=== PATIENT | female | born 1980 | race Caucasian/White ===

== ENCOUNTER 2023-04-02 08:40 | Outpatient (OUT) | payer OTHER, SELFPAY ==
--- NOTE | 2023-04-02 | MM_ITS ---
Patient Name: ARAMIS GARCIA MR#: [id number] : 1980 Exam Date: 04/02/2023 Ordering Doctor: DR Marshall Sanchez . RADIOLOGY REPORT PROCEDURE: MM TOMOSYNTHESIS SCREENING BI COMPARISON: MG MAMM SCREEN 3D [place] CAD, 11/28/2021. MG MAMM SCREEN [facility] W CAD, 05/17/2020. INDICATIONS: [place] Screening Mammogram Calculator Name NCI Breast Cancer Risk Assessment Tool 5 Year Breast Cancer Risk 1.10% Lifetime Breast Cancer Risk 13.10% Personal Breast Cancer No Personal Ovarian Cancer No Treatments None Family Cancers Mother with lung cancer at age 51. LOCATION: [facility] BREAST COMPOSITION: Scattered areas fibroglandular density. FINDINGS: DIAGNOSTIC CATEGORY 1--NEGATIVE. NO CHANGE FROM COMPARISON ASSESSMENT. Scattered benign-appearing calcifications are present. Scattered benign-appearing lymph nodes are present. RIGHT BREAST: No significant suspicious finding. LEFT BREAST: No significant suspicious finding. RECOMMENDATIONS: ROUTINE MAMMOGRAM AND CLINICAL EVALUATION IN 12 MONTHS. PLEASE NOTE: A NORMAL MAMMOGRAM DOES NOT EXCLUDE THE POSSIBILITY OF BREAST CANCER. A CLINICALLY SUSPICIOUS PALPABLE LUMP SHOULD BE BIOPSIED. Dictated by: Jameson Olivas MD on 04/02/2023 at 12:56 Approved by: Jameson Olivas MD on 04/02/2023 at 12:58
== END 2023-04-02 08:41 | disposition home or self-care (01) ==
LOC: MAMMO 08:40
PROVIDERS: PCP Family Medicine; Visit Provider Family Medicine
DX: Z12.31 Encounter for screening mammogram for malignant neoplasm of breast (principal); Z80.1 Family history of malignant neoplasm of trachea, bronchus and lung
CPT/HCPCS: 77063; 77067

== ENCOUNTER 2023-06-28 10:00 | Outpatient (OUT) | payer OTHER, SELFPAY ==
--- NOTE | 2023-06-28 | XR_ITS ---
The [address] [address] Patient Name: ARAMIS GARCIA MRN: [id number] date: 1980 Sex: F Assigned Patient Location: Current Patient Location: Accession/Order Number: [id number] Exam Date: 06/28/2023 10:05 Report Date: 06/28/2023 11:03 At the request of: ROSIO CORONEL Procedure: XR shoulder LT min 2V EXAM: Left shoulder HISTORY: . LEFT SHOULDER PAIN . COMPARISON: None. TECHNIQUE: 3 views FINDINGS: No fracture or dislocation of left shoulder is noted. Glenohumeral joint is unremarkable. There is penciling of the distal aspect of the clavicle. By history patient has had a portion of the left clavicle removed by surgery. Surrounding soft tissues are unremarkable. XR/XR shoulder LT min 2V IMPRESSION: 1. No acute bony abnormality of the left shoulder. Please see above comments. Electronically authenticated by: ROSS MCCLENDON Date: 06/28/2023 11:03
--- OUTSIDE RECORDS SUMMARY | 2023-06-28 10:18 | XMS_ITS | CCD ---
Author Name Unknown Address [address] [place] [address] Organization [facility] Care Team Providers Care Etcher Apprentice Name Role Phone BRAXTON SAMANO Unavailable Unavailable NADERER, PEBBLES OLIVER Unavailable Unavailabl e LISS, BRAXTON Davis Unavailable Unavailable LISS, BRAXTON Davis Unavailable Unavailable NADERER, PEBBLES OLIVER Unavailable Unavailabl e NIRANJAN ., DR SYKES Attending Unavailable NIRANJAN ., DR SYKES Consulting Unavailable NIRANJAN ., DR SYKES Admitting Unavailable NADERER, DR PEBBLES Morales Primary Care Unavailable NADERER, DR PEBBLES Morales Attending Unavailable NADERER, DR PEBBLES Morales Primary Care Unavailable NADERER, DR PEBBLES Morales Admitting Unavailable MASON, DR ROSS Gregory Consulting Unavailable NADERER, DR PEBBLES Morales Consulting Unavailable NADERER, PEBBLES Morales Primary Care Unavailable NADERER, PEBBLES Referring Unavailable NADERER, PEBBLES Primary Care Unavailable NADERER, PEBBLES Attending Unavailable NADERER, PEBBLES Attending Unavailable NADERER, PEBBLES Attending Unavailable Problems Active Problems Problem Classification Problem Date Documented Da te Episodic/Chronic Cardiac dysrhythmias (1 source) Palpitations; Translations: [Palpitations] Onset: 05-12-2023 Episodic Unclassified (1 source) LEFT AC JOINT SPRAIN / LEFT AC JOINT SPRAIN() Onset: 03-24-2017 Past or Other Problems Problem Classification Problem Date Documented Date Episodic/Chronic Immunizations and screening for infectious disease (1 source) Encounter for screening for human papillomavirus (HPV); Translations: [ENC SCREENING HUMAN PAPILLOMAVIRUS] Onset: 02-15-2022 Episodic Other screening for suspected conditions (not mental disorders or infectious disease) (8 sources) Encounter for screening for malignant neoplasm of cervix; Translations: [Encounter for screening mammogram for malignant neoplasm of breast] Onset: 11-28-2021 Episodic Residual codes; unclassified (1 source) Family history of malignant neoplasm of trachea, bronchus and lung; Translations: [FAM HX MALIG NEOPLSM TRACH BRON LNG] Onset: 12-01-2021 Episodic Unclassified (1 source) LEFT AC JOINT SPRAIN; Translations: [LEFT AC JOINT SPRAIN] Onset: 03-24-2017 Results Test Name Value Interpretation Reference Range Facility Consent Formson 03-24-2023 Consent Forms [id number] GTIFF Normal [facility] CMP Standardon 02-16-2023 eGFR Non AA >60 Invalid Interpretation Code [facility] Comment on above: Performed By: #### 2 839691, [id number], 5360286, 7309687484, 3518232, 4609804, 5418841 #### [facility] (DEFAULT) [address] [place] [address] 16107 eGFR AA >60 Invalid Interpretation Code [facility] Comment on above: Performed By: #### 2 263591, [id number], 3760155, 8907793138, 1270212, 4312469, 4566955 #### [facility] (DEFAULT) [address] [place] [address] 29977 Albumin [Mass/Vol] 4.0 g/dL Normal 3.5-5.0 [facility] Comment on above: Performed By: #### 2 543283, [id number], 0587313, 1174940026, 3770192, 1734461, 2093821 #### [facility] (DEFAULT) [address] [place] [address] 09160 Albumin/Globulin [Mass ratio] 1.1 {ratio} Low 1.4-2.6 [facility] Comment on above: Performed By: #### 2 248987, [id number], 8820408, 8992834605, 5656976, 9703727, 2752700 #### [facility] (DEFAULT) [address] [place] [address] 40389 Alk Phos 54 IU/L Normal 32-91 [facility] Comment on above: Performed By: #### 2 849176, [id number], 7241243, 4782819192, 3481463, 2689448, 4362109 #### [facility] (DEFAULT) [address] [place] [address] 47442 ALT [Catalytic activity/Vol] 23.0 U/L Normal 14.0-54.0 [facility] Comment on above: Performed By: #### 2 050044, [id number], 0773108, 6466320604, 2511131, 1097582, 5511357 #### [facility] (DEFAULT) [address] [place] [address] 41225 Anion gap [Moles/Vol] 9.7 mmol/L Normal 5.0-19.0 [facility] Comment on above: Performed By: #### 2 129055, [id number], 5307978, 4621695878, 8034163, 2144158, 5792307 #### [facility] (DEFAULT) [address] [place] [address] 18420 AST [Catalytic activity/Vol] 21 U/L Normal 15-41 [facility] Comment on above: Performed By: #### 2 355627, [id number], 8067416, 2020937844, 1380392, 3541131, 4104242 #### [facility] (DEFAULT) [address] [place] [address] 49773 Bili Total 0.5 mg/dL Normal 0.3-1.2 [facility] Comment on above: Performed By: #### 2 574584, [id number], 8797891, 9909965829, 0620891, 8254291, 6094616 #### [facility] (DEFAULT) [address] [place] [address] 27683 Calcium [Mass/Vol] 8.7 mg/dL Low 8.9-10.3 [facility] Comment on above: Performed By: #### 2 383529, [id number], 9789590, 5697315896, 8950778, 8036024, 9045055 #### [facility] (DEFAULT) [address] [place] [address] 05679 Chloride [Moles/Vol] 105 mmol/L Normal 101-111 [facility] Comment on above: Performed By: #### 2 720852, 2970161004, 4015384, 0259118246, 0611657, 4113315, 6628274 #### [facility] (DEFAULT) [address] [place] [address] 55594 CO2 [Moles/Vol] 27 mmol/L Normal 21-32 [facility] Comment on above: Performed By: #### 2 021931, 2859720828, 2220251, 7466548006, 1403842, 4484877, 3349611 #### [facility] (DEFAULT) [address] [place] [address] 52428 Creatinine [Mass/Vol] 0.75 mg/dL Normal 0.60-1.30 [facility] Comment on above: Performed By: #### 2 083545, 5052623253, 5329668, 9812383947, 5737824, 6869320, 5292190 #### [facility] (DEFAULT) [address] [place] [address] 59244 Globulin (S) [Mass/Vol] 3.4 g/dL Normal 1.5-4.3 [facility] Comment on above: Performed By: #### 2 854029, 6592299240, 7779365, 2001647923, 9808543, 7534756, 7400733 #### [facility] (DEFAULT) [address] [place] [address] 27812 Glucose [Mass/Vol] 95.0 mg/dL Normal 74.0-118.0 [facility] Comment on above: Performed By: #### 2 438443, 8231176054, 9386236, 2643364973, 7388871, 7432329, 3195795 #### [facility] (DEFAULT) [address] [place] [address] 49825 Osmolality 276 mOsm/L Invalid Interpretation Code [facility] Comment on above: Performed By: #### 2 278947, 9536810031, 3233438, 8028749760, 6611218, 0601597, 0778544 #### [facility] (DEFAULT) [address] [place] [address] 45898 Potassium [Moles/Vol] 3.7 mmol/L Normal 3.6-5.1 [facility] Comment on above: Performed By: #### 2 888040, 4239947204, 4690847, 8190688619, 5294743, 1117364, 9001517 #### [facility] (DEFAULT) [address] [place] [address] 13204 Protein [Mass/Vol] 7.4 g/dL Normal 6.5-8.1 [facility] Comment on above: Performed By: #### 2 349330, 9808467610, 9320393, 7488211707, 6839554, 0567426, 6307372 #### [facility] (DEFAULT) [address] [place] [address] 52346 Sodium [Moles/Vol] 138.0 mmol/L Normal 136.0-144.0 [facility] Comment on above: Performed By: #### 2 228244, 1447441003, 8308154, 9968365160, 3387266, 9600065, 0900435 #### [facility] (DEFAULT) [address] [place] [address] 35796 Urea nitrogen [Mass/Vol] 14 mg/dL Normal 8-26 [facility] Comment on above: Performed By: #### 2 985841, 2039751123, 7007844, 9987457775, 8517172, 2174441, 1676447 #### [facility] (DEFAULT) [address] [place] [address] 24612 Urea nitrogen/Creatinine [Mass ratio] 18.6 mg/mg High 4.6-16.2 [facility] Comment on above: Performed By: #### 2 146588, 0121150272, 7121052, 4449968569, 6079070, 1190391, 3551764 #### [facility] (DEFAULT) [address] [place] [address] 77891 GGTon 02-16-2023 Gamma glutamyl transferase [Catalytic activity/Vol] 14.0 U/L Normal 7.0-50.0 [facility] Comment on above: Performed By: #### 2 375139, 8045028285, 9454104, 2957961928, 2050456, 5514981, 2899450 #### [facility] (DEFAULT) [address] [place] [address] 54216 Iron Levelon 02-16-2023 Iron [Mass/Vol] 78.0 ug/dL Normal 28.0-170.0 [facility] Comment on above: Performed By: #### 2 631500, 4289006460, 9539607, 3500947436, 4431836, 6165483, 6302466 #### [facility] (DEFAULT) [address] [place] [address] 20363 LDHon 02-16-2023 LDH 159.0 IU/L Normal 98.0-192.0 [facility] Comment on above: Performed By: #### 2 291910, 7515700627, 3023677, 9082554226, 4637662, 0741141, 1693632 #### [facility] (DEFAULT) [address] [place] [address] 63392 Lipid Panel Standardon 02-16 Cholesterol [Mass/Vol] 183.0 mg/dL Normal 66.0-200.0 [facility] Comment on above: Performed By: #### 2 881233, 1504030678, 7275740, 8508389388, 7185112, 4601627, 2219971 #### [facility] (DEFAULT) [address] [place] [address] 63268 Cholesterol in HDL [Mass/Vol] 50 mg/dL Normal 40-71 [facility] Comment on above: Performed By: #### 2 034246, 9885349178, 1167526, 1978597927, 3491338, 6475663, 6779154 #### [facility] (DEFAULT) [address] [place] [address] 27183 Cholesterol in LDL [Mass/Vol] 119 mg/dL High 1-100 [facility] Comment on above: Performed By: #### 2 313479, 2849262480, 6788080, 1175595170, 3001470, 7583171, 8036440 #### [facility] (DEFAULT) [address] [place] [address] 53865 Cholesterol.total/C holesterol in HDL [Mass ratio] 3.6 {ratio} Normal 0.0-4.5 [facility] Comment on above: Performed By: #### 2 854308, 0314610191, 4527834, 1008177168, 3284473, 0799684, 9037141 #### [facility] (DEFAULT) [address] [place] [address] 62096 Triglyceride [Mass/Vol] 74.0 mg/dL Normal 0.0-150.0 [facility] Comment on above: Performed By: #### 2 566013, 1762232569, 1904823, 4411194601, 6167946, 2909214, 0435951 #### [facility] (DEFAULT) [address] [place] [address] VLDL. 15 mg/dL Normal 5-40 [facility] Comment on above: Performed By: #### 2 973602, 1138831578, 9258838, 8131091122, 1810691, 5582168, 5732876 #### [facility] (DEFAULT) [address] [place] [address] 52880 Phoson 02-16-2023 Phosphate [Mass/Vol] 3.4 mg/dL Normal 2.5-4.6 [facility] Comment on above: Performed By: #### 2 084968, 9048637087, 0365070, 2306080309, 7023418, 8648502, 9740167 #### [facility] (DEFAULT) [address] [place] [address] 09802 Uric Acidon 02-16-2023 Urate [Mass/Vol] 4.4 mg/dL Normal 2.6-8.0 [facility] Comment on above: Performed By: #### 2 780361, 2393516933, 5856264, 6066212414, 6358693, 6085742, 3774563 #### [facility] (DEFAULT) [address] [place], [place] [address] PAP ACOG PANEL 2: 30 to 65on 02-20-2022 . . Normal [facility] Comment on above: Result Comment: Perf ormed at: WB Performed By: #### 4 178324 #### [facility] [address] [address] [address] Harsh Segundo Age Gdln ACOG Testing 30-65 Normal [facility] Comment on above: Performed By: #### 4 197988 #### [facility] [address] [address] [address] Harsh Segundo DIAGNOSIS: Comment Normal [facility] Comment on above: Result Comment: NEGA TIVE FOR INTRAEPITHELIAL LESION OR MALIGNANCY. SPECIMEN REPROCESSED FOR INTERPRETATION. Performed at: WB Performed By: #### 4 948552 #### [facility] [address] [address] [address] Harsh Segundo HPV Aptima Negative Normal Negative [facility] Comment on above: Result Comment: This nucleic acid amplification test detects fourteen high-risk HPV types (16,18,31,33,35,39,45,51,52,56,58,59,66,68) without differentiation. Performed at: =G Performed By: #### 4 120204 #### [facility] [address] [address] [address] Harsh Segundo HPV Genotype Reflex Comment Normal [facility] Comment on above: Result Comment: Crit eria not met, HPV Genotype not performed. Performed at: WB Performed By: #### 4 447615 #### [facility] [address] [address] [address] Harsh Segundo Methodology: Comment Normal [facility] Comment on above: Result Comment: This liquid based ThinPrep(R) pap test was screened with the use of an image guided system. Performed at: WB Performed By: #### 4 540385 #### [facility] [address] [place] [address] Dr. Harsh Segundo Note: Comment Normal [facility] Comment on above: Result Comment: The Pap smear is a screening test designed to aid in the detection of premalignant and malignant conditions of the uterine cervix. It is not a diagnostic procedure and should not be used as the sole means of detecting cervical cancer. Both false-positive and false-negative reports do occur. . Performed at: WB Performed By: #### 4 930415 #### [facility] [address] [address] [address] Harsh Segundo Performed by: Comment Normal [facility] Comment on above: Result Comment: Jose Francisco Cervantes Loom Technician (ASCP) Performed at: WB Performed By: #### 4 164084 #### [facility] [address] [address] [address] Harsh Segundo Specimen adequacy: Comment Normal [facility] Comment on above: Result Comment: Sati sfactory for evaluation. No endocervical component is identified. Performed at: WB Performed By: #### 4 542620 #### [facility] [address] [place] [address] Dr. Harsh Segundo MG MAMM SCREEN 3D PETERSON CADon 11-28-2021 MG MAMM SCREEN 3D PETERSON CAD Patient: ARAMIS GARCIA Exam Date: 11/28/2021 : 1980 Gender:F Ordering : DR PEBBLES HASTINGS . Admission #: [id number] Family : Order #: [id number] CLICK HERE TO VIEW EXAM RADIOLOGY REPORT PROCEDURE: MAMMOGRAM SCREENING 3D BILATERAL CAD COMPARISON: MG MAMM SCREEN PETERSON W CAD, 03/31/2019. MG MAMM SCREEN PETERSON W CAD, 05/17/2020. INDICATIONS: Screening mammography Calculator Name NCI Breast Cancer Risk Assessment Tool 5 Year Breast Cancer Risk 0.90% Lifetime Breast Cancer Risk 13.40% Personal Breast Cancer No Personal Ovarian Cancer No Treatments None Family Cancers Mother with lung cancer at age 51. LOCATION: [facility] BREAST COMPOSITION: Scattered areas fibroglandular density. FINDINGS: DIAGNOSTIC CATEGORY 1--NEGATIVE. NO CHANGE FROM COMPARISON ASSESSMENT. Scattered benign-appearing lymph nodes are present. RIGHT BREAST: No significant suspicious finding. LEFT BREAST: No significant suspicious finding. RECOMMENDATIONS: ROUTINE MAMMOGRAM AND CLINICAL EVALUATION IN 12 MONTHS. PLEASE NOTE: A NORMAL MAMMOGRAM DOES NOT EXCLUDE THE POSSIBILITY OF BREAST CANCER. A CLINICALLY SUSPICIOUS PALPABLE LUMP SHOULD BE BIOPSIED. Dictated by: Ross Olivas MD on 11/28/2021 at 08:59 Approved by: Ross Olivas MD on 11/28/2021 at 09:12 Normal [facility] OPERATIVE REPORTon OPERATIVE REPORT [address] [address] OPERATIVE REPORTPATIENT NAME: ARAMIS GARCIA : 1980MED REC NO: [id number] ROOM:ACCOUNT NO: [id number] ADMIT DATE: 03/24/2017PROVIDER: Braxton SamanoDATE OF PROCEDURE: 03/24/2017PREOPERATIVE DIAGNOSES: Left shoulder AC joint sprain with pain, leftshoulder impingement, left shoulder labral tear.POSTOPERATIVE DIAGNOSES: Left shoulder AC joint sprain with pain, leftshoulder impingement, left shoulder labral tear.PROCEDURE PERFORMED: Left shoulder arthroscopy, debridement of labrum,arthroscopic subacromial decompression, arthroscopic distal clavicleexcision.SURGEO N: Braxton Samano DO.ANESTHETIC: General.COMPLICATIONS: None.DISPOSITION: To post anesthesia care unit in stable condition.INDICATION: The patient is a 36-year-old female with longstanding shoulderpain, specifically AC joint pain failing conservative therapy. Sheunderstands the risks and benefits of procedure. Informed consent wassigned. Operative site was marked. Preoperative antibiotics was given.PROCEDURE IN DETAIL: The patient was taken to operative suite and placedsupine on the operating table. General inhalation anesthetic withendotracheal intubation was performed. Exam under anesthesia reveals astable shoulder. The patient was placed in a lateral position, secured tothe bed with a beanbag. Axillary roll was placed and she was paddedbetween her knees and under her bottom legs. She was secured to the bedwith a seatbelt. She was prepped and draped in normal sterile fashion. She was placed in 10 pounds of arthroscopic traction. All bony landmarkswere identified and marked with a marking a pen, 2 cm distal, 1 cm medialin the posterolateral aspect of the acromion. Posterior portal wasestablished. Diagnostic arthroscopy was performed. The glenoid articularsurface was intact. The humeral head articular surface was intact. Thebiceps tendon was intact. There was mild fraying of the anterior aspect ofthe supraspinatus or the biceps tendon. This was debrided back to a stableborder. it was less than 10% frayed area. There was a small frayedarea without detachment to the superior labrum that was debrided back to astable border with a suction shaver. Remaining labral and capsularattachments were intact. Scope was placed in subacromial space. Lateralportal was established. Subacromial bursectomy was performed. The was visualized and was intact. The undersurface of the acromion wasexposed with a ArthroCare device. A type 2 acromion existed and asmoothing acromioplasty was performed to create a type 1 acromialmorphology. The distal clavicle was exposed. The undersurface of the ACligaments was removed and there was an articular disk tear and synovitisfurther. This was debrided out of the distal clavicle. Utilizing a burthrough the anterior portal, 1 cm distal clavicle was excised so no longerimpose on the medial acromion. This was also verified on resection with [id number] scope. The posterior and superior ligaments were maintained. Atthis time, all instruments were removed from the shoulder. Shoulder wasinjected. Portals were closed with 3-0 nylon suture. Sterile dressing wasplaced. Simple sling was placed. The patient was awakened by Departmentof Anesthesia and transferred to the post anesthesia care unit in stablecondition.BRAXTON SAMANOD: 03/24/2017 21:15:40 [id number]#: [id number] Doc#: [id number]: Normal [facility] BUN + Creatinineon 7 (cont.) Normal [facility] Comment on above: Result Comment: Aver age GFR for 30-39 years old: 107 mL/min/1.73sq mChronic Kidney Disease: <60 mL/min/1.73sq mKidney failure: <15 mL/min/1.73sq meGFR calculated using average adult body mass. Additional eGFR calculator available at:http://www.[employer].OrthoPediactrics/multiple_crcl_2012.htmPerformed at [facility] [address] [address] Performed By: #### C DP, BUNCRT, LYTE ####[facility] [place] [address] Creatinine 0.61 mg/dL Normal 0.50-0.90 [facility] Comment on above: Performed By: #### C DP, BUNCRT, LYTE ####[address] [address] eGFR (non-black) mL/min/{1.73_m2} Normal >60 [facility] Comment on above: Performed By: #### C DP, BUNCRT, LYTE ####[address] [address] Urea nitrogen 9 mg/dL Normal 6-20 [facility] Comment on above: Performed By: #### C DP, BUNCRT, LYTE ####[address] [address] Staging: NOT REPORTED Normal [facility] Comment on above: Performed By: #### C DP, BUNCRT, LYTE ####[address] [address] CBC with Diffon 03-15-2017 Abs. Basophil 0.00 k/uL Normal 0.0-0.2 [facility] Comment on above: Result Comment: Perf ormed at [facility] [address] [place] [address] Performed By: #### C DP, BUNCRT, LYTE ####[address] [address] Abs.Neutrophil (Seg) 2.90 k/uL Normal 1.8-7.7 [facility] Comment on above: Performed By: #### C DP, BUNCRT, LYTE ####[address] [facility] [place] [address] Basophils/100 WBC Auto (Bld) 1 % Normal 0-2 [facility] Comment on above: Performed By: #### C DP, BUNCRT, LYTE ####[address] [place] [address] Eosinophils 0.10 10*3/uL Normal 0.0-0.4 [facility] Comment on above: Performed By: #### C DP, BUNCRT, LYTE ####[place] [address] Eosinophils/100 leukocytes 2 % Normal 1-4 [facility] Comment on above: Performed By: #### C DP, BUNCRT, LYTE ####[address] [address] Erythrocyte distribution width Auto Ratio (RBC) 14.1 % Normal 11.5-14.5 [facility] Comment on above: Performed By: #### C DP, BUNCRT, LYTE ####[address] [address] Erythrocytes (RBC) 4.43 10*6/uL Normal 4.0-5.2 [facility] Comment on above: Performed By: #### C DP, BUNCRT, LYTE ####[place] [address] Hematocrit (HCT) 39.8 % Normal 36-46 [facility] Comment on above: Performed By: #### C DP, BUNCRT, LYTE ####[address] [address] Hemoglobin mass conc (Bld) 13.3 g/dL Normal 12.0-16.0 [facility] Comment on above: Performed By: #### C DP, BUNCRT, LYTE ####[address] [place] [address] Lymphocytes 1.60 10*3/uL Normal 1.0-4.8 [facility] Comment on above: Performed By: #### C DP, BUNCRT, LYTE ####[address] [place] [address] Lymphocytes/100 leukocytes 32 % Normal 24-44 [facility] Comment on above: Performed By: #### C DP, BUNCRT, LYTE ####[address] [place] [address] MCH 30.0 pg Normal 26-34 [facility] Comment on above: Performed By: #### C DP, BUNCRT, LYTE ####[address] [place] [address] MCHC mass conc (RBC) 33.4 g/dL Normal 31-37 [facility] Comment on above: Performed By: #### C DP, BUNCRT, LYTE ####[address] [address] MCV 90.0 fL Normal 80-100 [facility] Comment on above: Performed By: #### C DP, BUNCRT, LYTE ####[address] [place] [address] Monocytes 0.40 10*3/uL Normal 0.2-0.8 [facility] Comment on above: Performed By: #### C DP, BUNCRT, LYTE ####[address] [facility] [place] [address] Monocytes/100 leukocytes 8 % High 1-7 [facility] Comment on above: Performed By: #### C DP, BUNCRT, LYTE ####[address] [place] [address] Neutrophil (Seg) 57 % Normal 36-66 [facility] Comment on above: Performed By: #### C DP, BUNCRT, LYTE ####[address] [facility] [place] [address] Platelet mean volume (PMV) 7.4 fL Normal 6.0-12.0 [facility] Comment on above: Performed By: #### C DP, BUNCRT, LYTE ####[address] [facility] [place] [address] Platelets 355 10*3/uL Normal 130-400 [facility] Comment on above: Performed By: #### C DP, BUNCRT, LYTE ####[address] [address] WBC (Leukocytes) 5.1 10*3/uL Normal 3.5-11.0 [facility] Comment on above: Performed By: #### C DP, BUNCRT, LYTE ####[address] [place] [address] Auto Diff Performed NOT REPORTED Normal [facility] Comment on above: Performed By: #### C DP, BUNCRT, LYTE ####[address] [facility] [place] [address] Erythrocyte morphology NOT REPORTED Normal [facility] Comment on above: Performed By: #### C DP, BUNCRT, LYTE ####[address] [facility] [place] [address] Granulocytes/100 WBC (Bld) NOT REPORTED Normal 0.00-0.30 [facility] Comment on above: Performed By: #### C DP, BUNCRT, LYTE ####[facility] [place] [id number] Immature granulocytes #/vol (Bld) NOT REPORTED Normal 0 [facility] Comment on above: Performed By: #### C DP, BUNCRT, LYTE ####[address] [address] Platelets NOT REPORTED Normal [facility] Comment on above: Performed By: #### C DP, BUNCRT, LYTE ####[address] [address] WBC Morphology NOT REPORTED Normal [facility] Comment on above: Performed By: #### C DP, BUNCRT, LYTE ####[address] [address] Electrolyteson 03-15-2017 Anion gap 13 mmol/L Normal 9-17 [facility] Comment on above: Result Comment: Perf ormed at [facility] [address] [place] [address] Performed By: #### C DP, BUNCRT, LYTE ####[address] [address] Chloride 104 mmol/L Normal 98-107 [facility] Comment on above: Performed By: #### C DP, BUNCRT, LYTE ####[address] [address] CO2 26 mmol/L Normal 20-31 [facility] Comment on above: Performed By: #### C DP, BUNCRT, LYTE ####[address] [address] Potassium molar conc 3.7 mmol/L Normal 3.7-5.3 [facility] Comment on above: Performed By: #### C DP, BUNCRT, LYTE ####[facility] [place] [address] Sodium 143 mmol/L Normal 135-144 [facility] Comment on above: Performed By: #### C DP, BUNCRT, LYTE ####[address] [address] Encounters Encounter Date Encounter Type Care Provider Facility Start: 06-17-2023 End: 06-17-2023 ambulatory PEBBLES HASTINGS Not Available Start: 05-12-2023 End: 05-13-2023 ambulatory PEBBLES [facility] Start: 05-06-2023 End: 05-06-2023 ambulatory PEBBLES HASTINGS Not Available Start: 03-24-2023 End: 03-24-2023 ambulatory PEBBLES HASTINGS Not Available Start: 02-16-2023 End: 02-17-2023 ambulatory PEBBLES HASTINGS Facility:[facility] Start: 02-12-2022 End: 02-12-[address] MONY UREÑA . Facility: Start: 11-28-2021 End: 11-29-[address] PEBBLES HASTINGS Facility: Start: 03-24-2017 End: 03-24-2017 Ambulatory BRAXTON SAMANO [facility] Start: 03-15-2017 End: 03-16-2017 Ambulatory BRAXTON Barajas [facility] Procedures Date Procedure Procedure Detail Performing Clinician Start: 03-24-2017 NOTIFY PHYSICIAN (SPECIFY) BRAXTON SAMANO Start: 03-24-2017 NURSING COMMUNICATION Mauro SAMANO Start: 03-24-2017 DISCHARGE PATIENT BRAXTON SAMANO Start: 03-24-2017 BEDREST BRAXTON SAMANO Start: 03-24-2017 Continuous pulse oximetry BRAXTON SAMANO Start: 03-24-2017 ENCOURAGE DEEP BREAT ROSITA AND COUGHING BRAXTON SAMANO Start: 03-24-2017 NURSING COMMUNICATION Mauro SAMANO Start: 03-24-2017 POCT URINE GIUSEPPE SAMANO Start: 03-24-2017 INITIATE OXYGEN THER APY PROTOCOL BRAXTON SAMANO Start: 03-24-2017 NOTIFY PHYSICIAN (SPECIFY) BRAXTON SAMANO Start: 03-24-2017 POC UR-QUAL K ANGY SAMANO Start: 03-24-2017 VITAL SIGNS BRAXTON SAMANO Start: 03-15-2017 BUN AND CREATININE BRAXTON SAMANO Start: 03-15-2017 CBC WITH AUTO DIFFERENTIAL BRAXTON SAMANO Start: 03-15-2017 ELECTROLYTE PANEL BRAXTON SAMANO Start: 03-15-2017 EKG 12-LEAD BRAXTON SAMANO Payers Date Payer Category Payer Private Health Insurance [id number] 1980 Unknown [id number] 2.16.84 [id number] 1980 Unknown [id number] 2.16.84 [id number] 1978 Unknown [id number] 2.16.8 [id number] 1978 Unknown [id number] 2.16.84 [id number] 1978 Unknown [id number] 2.16.84 [id number] 1978 Unknown [id number] 1959 Unknown [id number] Private Health Insurance [id number] Summary Purpose Family History No Family History Records FoundNo Family History Records FoundNo Family History Records FoundNo Family History Records FoundNo Family History Records Found Advance Directives No Advanced Directives Records FoundNo Advanced Directives Records FoundNo Advanced Directives Records FoundNo Advanced Directives Records FoundNo Advanced Directives Records Found Additional Source Comments INFORMATION SOURCE (unrecogn ized section and content) DATE CREATED AUTHOR 10/12/2017 [facility] DATE CREATED AUTHOR AUTHOR'S ORGANIZ ATION 09/02/2022 [facility] DATE CREATED AUTHOR AUTHOR'S ORGANIZ ATION 03/26/2023 [facility] DATE CREATED AUTHOR AUTHOR'S ORGANIZ ATION 05/15/2023 [facility] DATE CREATED AUTHOR AUTHOR'S CAMERON RUIZ 06/19/2023 [facility] PSYCHIATRIC FOR RECORDS PERTAINING TO PATIENTS WHO ARE OR HAVE BEEN ENROLLED IN A CHEMICAL DEPENDENCY/SUBSTANCEABUSE PROGRAM, SOME INFORMATION MAY BE OMITTED. This clinical summary was aggregated from multiple sources. Caution should be exercised in using it in the provision of clinical care. This summary normalizes information from multiple sources, and as a consequence, information in this document may materially change the coding, format and clinical context of patient data. In addition, data may be omitted in some cases. CLINICAL DECISIONS SHOULD BE BASED ON THE PRIMARY CLINICAL RECORDS. [facility] [employer] [facility]. provides no warranty or guarantee of the accuracy or completeness of information in this document.
== END 2023-06-28 10:01 | disposition home or self-care (01) ==
LOC: EC 10:00
PROVIDERS: PCP Family Medicine; Visit Provider Orthopaedic Surgery
DX: M25.512 Pain in left shoulder (principal)
CPT/HCPCS: 73030

== ENCOUNTER 2023-07-02 07:48 | Outpatient (OUT) | payer OTHER, SELFPAY ==
--- OUTSIDE RECORDS SUMMARY | 2023-07-02 07:50 | XMS_ITS | CCD ---
Author Name Unknown Address [address] [place] [address] Organization [facility] Care Team Providers Care Night Shift Supervisor Name Role Phone BRAXTON SAMANO Unavailable Unavailable [...] Unavailable NADERER, DR PEBBLES Morales Admitting Unavailable AMARILLO, DR ROSS [employer] Unavailable NADERER, DR [...] Range Facility Consent Formson 03-24-2023 Consent Forms [id number] GTIFF Normal [facility] CMP Standardon 02-16-2023 eGFR Non AA >60 Invalid Interpretation Code [facility] Comment on above: Performed By: #### 2 242653, [id number], 7500286, [id number], 3691902, 4031106, 8084823 #### [facility] (DEFAULT) [address] [place] [address] 38009 eGFR AA >60 Invalid Interpretation Code [facility] Comment on above: Performed By: #### 2 053507, [id number], 2200904, 0021047389, 1350528, 4249330, 4625851 #### [facility] (DEFAULT) [address] [place] [address] 42737 Albumin [Mass/Vol] 4.0 g/dL Normal 3.5-5.0 [facility] Comment on above: Performed By: #### 2 456120, [id number], 9120829, 7867313597, 4313895, 4002742, 9550652 #### [facility] (DEFAULT) [address] [place] [address] 18782 Albumin/Globulin [Mass ratio] 1.1 {ratio} Low 1.4-2.6 [facility] Comment on above: Performed By: #### 2 255353, [id number], 6446360, 5088271482, 0215932, 2144027, 1413396 #### [facility] (DEFAULT) [address] [place] [address] 52101 Alk Phos 54 IU/L Normal 32-91 [facility] Comment on above: Performed By: #### 2 904800, [id number], 8081914, 8448019380, 5612502, 8995092, 3282275 #### [facility] (DEFAULT) [address] [place] [address] 11972 ALT [Catalytic activity/Vol] 23.0 U/L Normal 14.0-54.0 [facility] Comment on above: Performed By: #### 2 608306, 6612490417, 3773588, 8197155753, 0680459, 1200532, 0619100 #### [facility] (DEFAULT) [address] [place] [address] 02390 Anion gap [Moles/Vol] 9.7 mmol/L Normal 5.0-19.0 [facility] Comment on above: Performed By: #### 2 075924, 3048684451, 6158285, 2918669566, 9680224, 5530701, 3202476 #### [facility] (DEFAULT) [address] [place] [address] 46520 AST [Catalytic activity/Vol] 21 U/L Normal 15-41 [facility] Comment on above: Performed By: #### 2 318772, 1720047959, 7058590, 0597950976, 7584012, 2489380, 1670044 #### [facility] (DEFAULT) [address] [place] [address] 10397 Bili Total 0.5 mg/dL Normal 0.3-1.2 [facility] Comment on above: Performed By: #### 2 511352, 1732967236, 9106811, 6522797792, 2494399, 8817965, 3605356 #### [facility] (DEFAULT) [address] [place] [address] 37133 Calcium [Mass/Vol] 8.7 mg/dL Low 8.9-10.3 [facility] Comment on above: Performed By: #### 2 483094, 7078112634, 2940480, 2984403804, 4684859, 3889340, 5006824 #### [facility] (DEFAULT) [address] [place] [address] 89408 Chloride [Moles/Vol] 105 mmol/L Normal 101-111 [facility] Comment on above: Performed By: #### 2 693933, 1319314074, 0289386, 8062572447, 7858455, 0695765, 4907440 #### [facility] (DEFAULT) [address] [place] [address] 79911 CO2 [Moles/Vol] 27 mmol/L Normal 21-32 [facility] Comment on above: Performed By: #### 2 881250, 8841846868, 9610466, 2584814438, 3616352, 1047756, 7447375 #### [facility] (DEFAULT) [address] [place] [address] 41438 Creatinine [Mass/Vol] 0.75 mg/dL Normal 0.60-1.30 [facility] Comment on above: Performed By: #### 2 782486, 1064452401, 0130787, 6809702354, 4327000, 8176233, 4705682 #### [facility] (DEFAULT) [address] [place] [address] 18176 Globulin (S) [Mass/Vol] 3.4 g/dL Normal 1.5-4.3 [facility] Comment on above: Performed By: #### 2 063583, 2579317605, 6297991, 3953721699, 7188302, 3823725, 8807777 #### [facility] (DEFAULT) [address] [place] [address] 94868 Glucose [Mass/Vol] 95.0 mg/dL Normal 74.0-118.0 [facility] Comment on above: Performed By: #### 2 319432, 4571136582, 3895447, 4257645657, 9589002, 6402948, 3650138 #### [facility] (DEFAULT) [address] [place] [address] 86421 Osmolality 276 mOsm/L Invalid Interpretation Code [facility] Comment on above: Performed By: #### 2 169684, 2606034123, 6251238, 7177009360, 5545551, 2580005, 8927916 #### [facility] (DEFAULT) [address] [place] [address] 95287 Potassium [Moles/Vol] 3.7 mmol/L Normal 3.6-5.1 [facility] Comment on above: Performed By: #### 2 319747, 6935810767, 1608264, 9456043065, 0707136, 6400347, 6829520 #### [facility] (DEFAULT) [address] [place] [address] 39946 Protein [Mass/Vol] 7.4 g/dL Normal 6.5-8.1 [facility] Comment on above: Performed By: #### 2 518331, 2878777937, 7000305, 0982870723, 4827529, 8610968, 6016013 #### [facility] (DEFAULT) [address] [place] [address] 56416 Sodium [Moles/Vol] 138.0 mmol/L Normal 136.0-144.0 [facility] Comment on above: Performed By: #### 2 169065, 4479081491, 6368699, 1019294053, 2661854, 1651938, 1031694 #### [facility] (DEFAULT) [address] [place] [address] 99793 Urea nitrogen [Mass/Vol] 14 mg/dL Normal 8-26 [facility] Comment on above: Performed By: #### 2 317190, 7871544470, 1605707, 2097444480, 1841212, 5749600, 8754769 #### [facility] (DEFAULT) [address] [place] [address] 13067 Urea nitrogen/Creatinine [Mass ratio] 18.6 mg/mg High 4.6-16.2 [facility] Comment on above: Performed By: #### 2 725306, 8968478518, 4880285, 8445285442, 8617221, 2548710, 7948561 #### [facility] (DEFAULT) [address] [place] [address] 26744 GGTon 02-16-2023 Gamma glutamyl transferase [Catalytic activity/Vol] 14.0 U/L Normal 7.0-50.0 [facility] Comment on above: Performed By: #### 2 315518, 0789979475, 3986369, 5616612527, 2649828, 8925385, 7309107 #### [facility] (DEFAULT) [address] [place] [address] 46179 Iron Levelon 02-16-2023 Iron [Mass/Vol] 78.0 ug/dL Normal 28.0-170.0 [facility] Comment on above: Performed By: #### 2 203748, 2724245230, 7904096, 4898693542, 2400359, 4661307, 8724757 #### [facility] (DEFAULT) [address] [place] [address] 68861 LDHon 02-16-2023 LDH 159.0 IU/L Normal 98.0-192.0 [facility] Comment on above: Performed By: #### 2 072348, 6563151888, 8333286, 9811412928, 8606736, 1313955, 2901623 #### [facility] (DEFAULT) [address] [place] [address] 18956 Lipid Panel Standardon 02-16 Cholesterol [Mass/Vol] 183.0 mg/dL Normal 66.0-200.0 [facility] Comment on above: Performed By: #### 2 995989, 7413583101, 5287258, 6788709072, 1337900, 9484744, 2202463 #### [facility] (DEFAULT) [address] [place] [address] 27367 Cholesterol in HDL [Mass/Vol] 50 mg/dL Normal 40-71 [facility] Comment on above: Performed By: #### 2 949674, 4967846624, 6845567, 5131204738, 5792492, 3196036, 4912913 #### [facility] (DEFAULT) [address] [place] [address] 70558 Cholesterol in LDL [Mass/Vol] 119 mg/dL High 1-100 [facility] Comment on above: Performed By: #### 2 544174, 5433203330, 2325264, 2957055826, 7936221, 4993742, 3496212 #### [facility] (DEFAULT) [address] [place] [address] 87208 Cholesterol.total/C holesterol in HDL [Mass ratio] 3.6 {ratio} Normal 0.0-4.5 [facility] Comment on above: Performed By: #### 2 940100, 4636900461, 7832397, 5691092460, 5118379, 1500795, 4958668 #### [facility] (DEFAULT) [address] [place] [address] 58400 Triglyceride [Mass/Vol] 74.0 mg/dL Normal 0.0-150.0 [facility] Comment on above: Performed By: #### 2 070641, 9455727367, 2359899, 0461223093, 3956595, 8827239, 9220349 #### [facility] (DEFAULT) [address] [place] [address] VLDL. 15 mg/dL Normal 5-40 [facility] Comment on above: Performed By: #### 2 922857, 7826892532, 5756628, 2811847329, 1944637, 9597886, 4202830 #### [facility] (DEFAULT) [address] [place] [address] 20941 Phoson 02-16-2023 Phosphate [Mass/Vol] 3.4 mg/dL Normal 2.5-4.6 [facility] Comment on above: Performed By: #### 2 317307, 2083593313, 4561831, 0155030096, 1916409, 3775188, 3945895 #### [facility] (DEFAULT) [address] [place] [address] 92743 Uric Acidon 02-16-2023 Urate [Mass/Vol] 4.4 mg/dL Normal 2.6-8.0 [facility] Comment on above: Performed By: #### 2 714995, 8533716381, 7304660, 9804067333, 6593073, 4138941, 7001625 #### [facility] (DEFAULT) [address] [place], [place] [address] PAP ACOG PANEL 2: 30 to 65on 02-20-2022 . . Normal [facility] Comment on above: Result Comment: Perf ormed at: WB Performed By: #### 4 496957 #### [facility] [address] [address] [address] Harsh Segundo Age Gdln ACOG Testing 30-65 Normal [facility] Comment on above: Performed By: #### 4 271652 #### [facility] [address] [address] [address] Harsh Segundo DIAGNOSIS: Comment Normal [facility] Comment on above: Result Comment: NEGA TIVE FOR INTRAEPITHELIAL LESION OR MALIGNANCY. SPECIMEN REPROCESSED FOR INTERPRETATION. Performed at: WB Performed By: #### 4 822108 #### [facility] [address] [address] [address] Harsh Segundo HPV Aptima Negative Normal Negative [facility] Comment on above: Result Comment: This nucleic acid amplification test detects fourteen high-risk HPV types (16,18,31,33,35,39,45,51,52,56,58,59,66,68) without differentiation. Performed at: =G Performed By: #### 4 832174 #### [facility] [address] [address] [address] Harsh Segundo HPV Genotype Reflex Comment Normal [facility] Comment on above: Result Comment: Crit eria not met, HPV Genotype not performed. Performed at: WB Performed By: #### 4 363140 #### [facility] [address] [address] [address] Harsh Segundo Methodology: Comment Normal [facility] Comment on above: Result Comment: This liquid based ThinPrep(R) pap test was screened with the use of an image guided system. Performed at: WB Performed By: #### 4 418342 #### [facility] [address] [place] [address] Dr. Harsh Segundo Note: Comment Normal [facility] Comment on above: Result Comment: The Pap smear is a screening test designed to aid in the detection of premalignant and malignant conditions of the uterine cervix. It is not a diagnostic procedure and should not be used as the sole means of detecting cervical cancer. Both false-positive and false-negative reports do occur. . Performed at: WB Performed By: #### 4 356624 #### [facility] [address] [address] [address] Harsh Segundo Performed by: Comment Normal [facility] Comment on above: Result Comment: Jose Francisco Cervantes [employer] Department Supervisor (ASCP) Performed at: WB Performed By: #### 4 547198 #### [facility] [address] [address] [address] Harsh Segundo Specimen adequacy: Comment Normal [facility] Comment on above: Result Comment: Sati sfactory for evaluation. No endocervical component is identified. Performed at: WB Performed By: #### 4 136448 #### [facility] [address] [place] [address] Dr. Harsh Segundo MG MAMM SCREEN 3D PETERSON CADon 11-28-2021 MG MAMM SCREEN 3D PETERSON CAD Patient: ARAMIS GARCIA Exam Date: 11/28/2021 : 1980 Gender:F Ordering : DR PEBBLES HASTINGS . Admission #: [id number] Family : Order #: [id number] CLICK HERE TO VIEW EXAM RADIOLOGY REPORT [...] lung cancer at age 49. LOCATION: [facility] BREAST COMPOSITION: Scattered areas fibroglandular density. [...] Olivas MD on 11/28/2021 at 09:12 Normal [facility] OPERATIVE REPORTon OPERATIVE REPORT [address] [address] OPERATIVE REPORTPATIENT NAME: ARAMIS GARCIA : 1980MED REC NO: [id number] ROOM:ACCOUNT NO: [id number] ADMIT DATE: 03/24/2017PROVIDER: Braxton SamanoDATE OF PROCEDURE: [...] This was also verified on resection with c30-tnaund scope. The posterior and superior ligaments were maintained. Atthis time, all instruments were removed from the shoulder. Shoulder wasinjected. Portals were closed with 3-0 nylon suture. Sterile dressing wasplaced. Simple sling was placed. The patient was awakened by Departmentof Anesthesia and transferred to the post anesthesia care unit in stablecondition.BRAXTON SAMANOD: 03/24/2017 21:15:40 [id number]#: [id number] Doc#: [id number]: Normal [facility] BUN + Creatinineon 7 (cont.) Normal [facility] Comment on above: Result Comment: Aver age GFR for 30-39 years old: 107 mL/min/1.73sq mChronic Kidney Disease: <60 mL/min/1.73sq mKidney failure: <15 mL/min/1.73sq meGFR calculated using average adult body mass. Additional eGFR calculator available at:http://www.[employer]/multiple_crcl_2012.htmPerformed at [facility] [address] [address] Performed By: #### C DP, BUNCRT, LYTE ####[facility] [place] [address] Creatinine 0.61 mg/dL Normal 0.50-0.90 [facility] Comment on above: Performed By: #### C DP, BUNCRT, LYTE ####[address] [address] eGFR (non-black) mL/min/{1.73_m2} Normal >60 [facility] Comment on above: Performed By: #### C DP, BUNCRT, LYTE ####[address] [address] Urea nitrogen 9 mg/dL Normal 6-20 [facility] Comment on above: Performed By: #### C DP, BUNCRT, LYTE ####[address] [address] Staging: NOT REPORTED Normal [facility] Comment on above: Performed By: #### C DP, BUNCRT, LYTE ####[address] [address] CBC with Diffon 03-15-2017 Abs. Basophil 0.00 k/uL Normal 0.0-0.2 [facility] Comment on above: Result Comment: Perf ormed at [facility] [address] [place] [address] Performed By: #### C DP, BUNCRT, LYTE ####[address] [address] Abs.Neutrophil (Seg) 2.90 k/uL Normal 1.8-7.7 [facility] Comment on above: Performed By: #### C DP, BUNCRT, LYTE ####[address] [facility] [place] [address] Basophils/100 WBC Auto (Bld) 1 % Normal 0-2 [facility] Comment on above: Performed By: #### C DP, BUNCRT, LYTE ####[address] [place] [address] Eosinophils 0.10 10*3/uL Normal 0.0-0.4 [facility] Comment on above: Performed By: #### C DP, BUNCRT, LYTE ####[place] [address] Eosinophils/100 leukocytes 2 % Normal 1-4 [facility] Comment on above: Performed By: #### C DP, BUNCRT, LYTE ####[address] [address] Erythrocyte distribution width Auto Ratio (RBC) 14.1 % Normal 11.5-14.5 [facility] Comment on above: Performed By: #### C DP, BUNCRT, LYTE ####[address] [address] Erythrocytes (RBC) 4.43 10*6/uL Normal 4.0-5.2 [facility] Comment on above: Performed By: #### C DP, BUNCRT, LYTE ####[address] [address] Hematocrit (HCT) 39.8 % Normal 36-46 [facility] Comment on above: Performed By: #### C DP, BUNCRT, LYTE ####[address] [address] Hemoglobin mass conc (Bld) 13.3 g/dL Normal 12.0-16.0 [facility] Comment on above: Performed By: #### C DP, BUNCRT, LYTE ####[address] [place] [address] Lymphocytes 1.60 10*3/uL Normal 1.0-4.8 [facility] Comment on above: Performed By: #### C DP, BUNCRT, LYTE ####[address] [place] [address] Lymphocytes/100 leukocytes 32 % Normal 24-44 [facility] Comment on above: Performed By: #### C DP, BUNCRT, LYTE ####[address] [place] [address] MCH 30.0 pg Normal 26-34 [facility] Comment on above: Performed By: #### C DP, BUNCRT, LYTE ####[address] [place] [address] MCHC mass conc (RBC) 33.4 g/dL Normal 31-37 [facility] Comment on above: Performed By: #### C DP, BUNCRT, LYTE ####[address] [address] MCV 90.0 fL Normal 80-100 [facility] Comment on above: Performed By: #### C DP, BUNCRT, LYTE ####[address] [place] [address] Monocytes 0.40 10*3/uL Normal 0.2-0.8 [facility] Comment on above: Performed By: #### C DP, BUNCRT, LYTE ####[address] [facility] [address] Monocytes/100 leukocytes 8 % High 1-7 [facility] Comment on above: Performed By: #### C DP, BUNCRT, LYTE ####[address] [place] [address] Neutrophil (Seg) 57 % Normal 36-66 [facility] Comment on above: Performed By: #### C DP, BUNCRT, LYTE ####[address] [facility] [address] Platelet mean volume (PMV) 7.4 fL Normal 6.0-12.0 [facility] Comment on above: Performed By: #### C DP, BUNCRT, LYTE ####[address] [facility] [address] Platelets 355 10*3/uL Normal 130-400 [facility] Comment on above: Performed By: #### C DP, BUNCRT, LYTE ####[address] [address] WBC (Leukocytes) 5.1 10*3/uL Normal 3.5-11.0 [facility] Comment on above: Performed By: #### C DP, BUNCRT, LYTE ####[address] [place] [address] Auto Diff Performed NOT REPORTED Normal [facility] Comment on above: Performed By: #### C DP, BUNCRT, LYTE ####[address] [facility] [address] Erythrocyte morphology NOT REPORTED Normal [facility] Comment on above: Performed By: #### C DP, BUNCRT, LYTE ####[address] [facility] [address] Granulocytes/100 WBC (Bld) NOT REPORTED Normal 0.00-0.30 [facility] Comment on above: Performed By: #### C DP, BUNCRT, LYTE ####[facility] [place] [address] Immature granulocytes #/vol (Bld) NOT REPORTED Normal 0 [facility] Comment on above: Performed By: #### C DP, BUNCRT, LYTE ####[address] [address] Platelets NOT REPORTED Normal [facility] Comment on above: Performed By: #### C DP, BUNCRT, LYTE ####[address] [address] WBC Morphology NOT REPORTED Normal [facility] Comment on above: Performed By: #### C DP, BUNCRT, LYTE ####[address] [address] Electrolyteson 03-15-2017 Anion gap 13 mmol/L Normal 9-17 [facility] Comment on above: Result Comment: Perf ormed at [facility] [address] [place] [address] Performed By: #### C DP, BUNCRT, LYTE ####[address] [address] Chloride 104 mmol/L Normal 98-107 [facility] Comment on above: Performed By: #### C DP, BUNCRT, LYTE ####[address] [address] CO2 26 mmol/L Normal 20-31 [facility] Comment on above: Performed By: #### C DP, BUNCRT, LYTE ####[address] [address] Potassium molar conc 3.7 mmol/L Normal 3.7-5.3 [facility] Comment on above: Performed By: #### C DP, BUNCRT, LYTE ####[facility] [place] [address] Sodium 143 mmol/L Normal 135-144 [facility] Comment on above: Performed By: #### C DP, BUNCRT, LYTE ####[address] [address] Encounters Encounter Date Encounter Type Care Provider [...] Start: 03-24-2017 End: 03-24-2017 Ambulatory BRAXTON SAMANO [facility] Start: 03-15-2017 End: 03-16-2017 Ambulatory BRAXTON Barajas [facility] Procedures Date Procedure Procedure Detail Performing [...] Payer Category Payer Private Health Insurance [id number] 1980 Unknown [id number] 2.16.84 [id number] 1980 Unknown [id number] 2.16.84 [id number] 1980 Unknown [id number] 2.16.8 [id number] 1980 Unknown [id number] 2.16.84 [id number] 1980 Unknown [id number] 2.16.84 [id number] 1980 Unknown [id number] 2.16.840 .[id number] 1961 Unknown [id number] Private Health Insurance [id number] Summary Purpose Family History No Family History Records FoundNo Family History Records FoundNo Family History Records FoundNo Family History Records FoundNo Family History Records Found Advance Directives No Advanced Directives Records FoundNo Advanced Directives Records FoundNo Advanced Directives Records FoundNo Advanced Directives Records FoundNo Advanced Directives Records Found Additional Source Comments INFORMATION SOURCE (unrecogn ized section and content) DATE CREATED AUTHOR 10/12/2017 [facility] DATE CREATED AUTHOR AUTHOR'S ORGANIZ ATION 09/02/2022 [facility] DATE CREATED AUTHOR AUTHOR'S ORGANIZ ATION 03/26/2023 [facility] DATE CREATED AUTHOR AUTHOR'S ORGANIZ ATION 05/15/2023 [facility] DATE CREATED AUTHOR AUTHOR'S CAMERON RUIZ 06/19/2023 [facility] FOR RECORDS PERTAINING TO PATIENTS WHO ARE [...] BE BASED ON THE PRIMARY CLINICAL RECORDS. [facility] [employer] [facility]. provides no warranty or guarantee of the accuracy or completeness of information in this document.
--- NOTE | 2023-07-02 07:53 | MR_ITS ---
The [address] [address] Patient Name: ARAMIS GARCIA MRN: [facility]:[id number] date: 1980 Sex: F Assigned Patient Location: MRI Current Patient Location: MRI Accession/Order Number: [id number] Exam Date: 07/02/2023 08:45 Report Date: 07/03/2023 08:21 At the request of: ROSIO CORONEL Procedure: MR shoulder LT wo con EXAM: MR shoulder LT wo con HISTORY: Acute Left Shoulder Pain. M25.512. Posterior left shoulder pain x 1 year. COMPARISON: X-rays 06/28/2023. MRI 07/15/2012. TECHNIQUE: Multiplanar multisequence MRI of the left shoulder was performed without contrast. This included axial PD fat-sat, sagittal PD, sagittal T2, sagittal STIR with coronal T1, coronal PD and coronal T2 fat sat imaging. FINDINGS: ACROMIOCLAVICULAR JOINT: No os acromiale is seen. There is undersurface irregularity of the acromion compatible with interval acromioplasty. Widening of the coracoclavicular interval compatible with distal clavicle resection. Mild increased fluid is noted in the subacromial/subdeltoid bursa. ROTATOR CUFF TENDONS: Mild supraspinatus tendinosis. No rotator cuff tendon tear is identified. No rotator cuff muscle edema or atrophy is seen. BICEPS TENDON: There is prominent thickening and intermediate signal in the intra-articular biceps tendon compatible with tendinosis, which is new. The biceps tendon is intact and normally located. No biceps tenosynovitis is seen. LABRUM: Evaluation of the labrum is somewhat motion degraded. As seen, well-defined labral tear is identified. No paralabral cyst is seen. GLENOHUMERAL JOINT: Minor marginal spur at the inferior glenohumeral joint. No sizable glenohumeral joint effusion. No appreciable thickening of the inferior glenohumeral ligament. BONES: Regenerative red marrow is noted. No fracture is identified. OUTLET SPACES: No mass in the quadrilateral space or spinoglenoid notch. MR/MR shoulder LT wo con IMPRESSION: 1. Prominent intra-articular biceps tendinosis is new from 2012. No biceps tendon tear. 2. Mild supraspinatus tendinosis. No rotator cuff tear. 3. No well-defined labral tear identified. 4. Interval distal clavicle resection and acromioplasty. 5. Mild fluid in the subacromial bursa could be related to mild bursitis or non-watertight seal. Electronically authenticated by: JOYCE MORRISON Date: 07/03/2023 08:21
== END 2023-07-02 07:49 | disposition home or self-care (01) ==
LOC: MRI 07:48
PROVIDERS: PCP Family Medicine; Visit Provider Orthopaedic Surgery
DX: M25.512 Pain in left shoulder (principal)
CPT/HCPCS: 73221

== ENCOUNTER 2023-10-28 20:55 | Outpatient (REF) | payer OTHER, SELFPAY ==
[2023-11-02 16:10] LABS: Age Gdln ACOG Testing Note (.); HPV Aptima Negative (Negative); IGP, Aptima HPV, rfx 16/18,45 Note (.)
== END 2023-10-28 20:56 | disposition home or self-care (01) ==
LOC: LAB 20:55
PROVIDERS: PCP Family Medicine; Visit Provider Obstetrics & Gynecology
DX: Z01.419 Encounter for gynecological examination (general) (routine) without abnormal findings (principal)
CPT/HCPCS: 87624; 88175

== ENCOUNTER 2024-07-21 07:32 | Outpatient (OUT) | payer OTHER, SELFPAY ==
--- NOTE | 2024-07-21 08:00 | MM_ITS ---
Patient Name: ARAMIS GARCIA MR#: [id number] : 1980 Exam Date: 07/21/2024 Ordering Doctor: DR Juan Layton . RADIOLOGY REPORT PROCEDURE: MM TOMOSYNTHESIS SCREENING BI COMPARISON: MM TOMOSYNTHESIS SCREENING BI, 04/02/2023. MG MAMM SCREEN 3D [facility] CAD, 11/28/2021. MG MAMM SCREEN [facility] W CAD, 05/17/2020. MG MAMM SCREEN [facility] W CAD, 03/31/2019. INDICATIONS: Screening Calculator Name NCI Breast Cancer Risk Assessment Tool 5 Year Breast Cancer Risk 1.10% Lifetime Breast Cancer Risk 13.00% Personal Breast Cancer No Personal Ovarian Cancer No Treatments None Family Cancers Aunt-maternal with breast cancer at age 54; Father with kidney cancer at age 72; Mother with lung cancer at age 51. LOCATION: [facility] BREAST COMPOSITION: There are scattered areas of fibroglandular density. FINDINGS: DIAGNOSTIC CATEGORY 1--NEGATIVE. LEFT BREAST: No significant suspicious finding. RIGHT BREAST: No significant suspicious finding. RECOMMENDATIONS: ROUTINE MAMMOGRAM AND CLINICAL EVALUATION IN 12 MONTHS. PLEASE NOTE: A NORMAL MAMMOGRAM DOES NOT EXCLUDE THE POSSIBILITY OF BREAST CANCER. A CLINICALLY SUSPICIOUS PALPABLE LUMP SHOULD BE BIOPSIED. Dictated by: Matt Farris DO on 07/21/2024 at 14:53 Approved by: Matt Farris DO on 07/21/2024 at 14:56
== END 2024-07-21 07:33 | disposition home or self-care (01) ==
LOC: MAMMO 07:33
PROVIDERS: PCP Family Medicine; Visit Provider Obstetrics & Gynecology
DX: Z12.31 Encounter for screening mammogram for malignant neoplasm of breast (principal); Z80.3 Family history of malignant neoplasm of breast; Z80.51 Family history of malignant neoplasm of kidney; Z80.1 Family history of malignant neoplasm of trachea, bronchus and lung
CPT/HCPCS: 77063; 77067

== ENCOUNTER 2024-11-02 15:06 | Outpatient (REF) | payer OTHER, SELFPAY ==
[2024-11-04 12:08] LABS: Age Gdln ACOG Testing Note (.); IGP, Aptima HPV, rfx 16/18,45 Note (.)
== END 2024-11-02 15:07 | disposition home or self-care (01) ==
LOC: LAB 15:06
PROVIDERS: PCP Family Medicine; Visit Provider Obstetrics & Gynecology
DX: Z01.419 Encounter for gynecological examination (general) (routine) without abnormal findings (principal)
CPT/HCPCS: 87624; 88175